=== PATIENT | female | born 1975 | race Caucasian/White ===

== ENCOUNTER → 2023-04-20 | Outpatient (CLI) | payer OTHER ==
--- NOTE | 2023-04-21 06:46 | MR ---
EXAMINATION TYPE: MR knee RT wo con DATE OF EXAM: 04/20/2023 COMPARISON: NONE HISTORY: Right knee pain and swelling and locking for 6 to 12 months TECHNIQUE: Multiplanar, multisequence images of the knee is performed without IV contrast. FINDINGS: MEDIAL MENISCUS: Medial extrusion medial meniscus with truncated appearance to the posterior horn hav ing linear signal extending to inferior articular surface. LATERAL MENISCUS: Anterior and posterior horns are intact without tear. CRUCIATE LIGAMENTS: The anterior and posterior cruciate ligaments are intact. Increased signal throug hout the anterior cruciate ligament is present. COLLATERAL LIGAMENTS: The medial collateral ligament and lateral collateral ligament complex are inta ct. Increased signal with fluid surrounding the medial collateral ligament. EXTENSOR MECHANISM: Visualized quadriceps and patellar tendons are intact. EFFUSION: Large size suprapatellar joint effusion. POPLITEAL CYST: No popliteal/gee cyst. TRICOMPARTMENT SPACES: Moderate to severe narrowing with moderate spurring patellofemoral compartment . Moderate narrowing and spurring medial and lateral tibiofemoral compartments. 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 Full-thickness cartilaginous loss medial tibiofemoral compartment. BONE MARROW SIGNAL: Heterogeneous diminished T1 and increased T2 signal throughout the distal medial femoral condyle and smaller areas of involvement involving the posterior patellar pole. OTHER: No additional significant abnormality is appreciated. IMPRESSION: 1. Large-sized patellar joint effusion. 2. Full-thickness tear of posterior horn medial meniscus. 3. Moderate MCL sprain injury. 4. 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
== END | disposition home or self-care (01) ==
LOC: RADMRIMAIN 16:33
PROVIDERS: ATTEND Orthopaedic Surgery Sports Medicine
DX: M17.11 Unilateral primary osteoarthritis, right knee (principal); M23.631 Other spontaneous disruption of medial collateral ligament of right knee; M23.321 Other meniscus derangements, posterior horn of medial meniscus, right knee; M25.461 Effusion, right knee; M25.562 Pain in left knee